=== PATIENT | female | born 1955 | race Caucasian/White ===

== ENCOUNTER → 2020-04-23 09:25 | Outpatient (BNVA) | payer MEDICARE, SELFPAY | PROVIDERS: Family Provider Family Medicine; PCP Family Medicine; Visit Provider Family Medicine | DX: M35.02 Sjogren syndrome with lung involvement (principal); I10 Essential (primary) hypertension; R05 Cough; Z13.6 Encounter for screening for cardiovascular disorders; R41.3 Other amnesia; Z13.220 Encounter for screening for lipoid disorders; L92.8 Other granulomatous disorders of the skin and subcutaneous tissue | CPT/HCPCS: 71046; 80053; 80061; 82607; 82652; 84443; 85025 ==

== ENCOUNTER → 2020-06-26 13:52 | Outpatient (BNVA) | payer MEDICARE, SELFPAY | PROVIDERS: Family Provider Family Medicine; PCP Family Medicine; Referring Provider Family Medicine; Visit Provider Specialist | DX: G51.32 Clonic hemifacial spasm, left (principal); G24.3 Spasmodic torticollis; G31.84 Mild cognitive impairment of uncertain or unknown etiology; M35.02 Sjogren syndrome with lung involvement | CPT/HCPCS: 99204 ==

== ENCOUNTER → 2020-07-11 09:51 | Outpatient (BNVA) | payer MEDICARE, SELFPAY | PROVIDERS: Family Provider Family Medicine; PCP Family Medicine; Visit Provider Internal Medicine | DX: Z11.59 Encounter for screening for other viral diseases (principal) | CPT/HCPCS: 87635 ==

== ENCOUNTER 2020-07-15 09:42 | Outpatient (CLI) | payer MEDICARE, SELFPAY ==
--- NOTE | 2020-07-15 11:00 | PFTS_ITS ---
Date of Study:07/15/20 Date of Dictation: MECHANICS: Forced vital capacity (FVC) is normal. Forced expiratory volume in one second (FEV1) is normal. FEV1/FVC is normal. FLOW VOLUME LOOP: Normal. LUNG VOLUMES: Total lung capacity (TLC) is normal. Residual volume (RV) is normal. DIFFUSING CAPACITY FOR CARBON MONOXIDE: Normal. INTERPRETATION: The pulmonary function tests are normal. Lung volumes are normal. Gas exchange (DLCO) is normal. MTDD
== END 2020-07-15 09:43 | disposition home or self-care (01) ==
LOC: RT 09:43
PROVIDERS: PCP Family Medicine; Visit Provider Internal Medicine Critical Care Medicine
DX: R05 Cough (principal)
CPT/HCPCS: 94010; 94726; 94729

== ENCOUNTER 2020-07-21 12:33 | Outpatient (CLI) | payer MEDICARE, SELFPAY ==
--- NOTE | 2020-07-21 13:00 | MR_ITS ---
WS: [id number] MRI HEAD WITHOUT CONTRAST TECHNIQUE: Sagittal T1, T2 axial, T2 axial FLAIR, axial and coronal T1 images, axial susceptibility w eighted imaging, axial diffusion weighted images, and coronal T2 images were obtained. CLINICAL INFORMATION: G31.84 Mild cognitive impairment, so stated COMPARISON: MRI December 04, 2012 FINDINGS: No evidence of restricted diffusion to suggest acute ischemia. Ventricular system and basal cisterns are patent. Mild supratentorial white matter changes. The number and distribution of lesions is uncha nged from previous. Largest lesion in the right periatrial white matter measuring 6.7 mm unchanged. M ild parenchymal volume loss. Normal posterior fossa. Normal vascular flow voids at the skull base. No extra-axial fluid collection s. No evidence of mass or mass effect. Small right greater than left mastoid effusions. Paranasal sin uses are well aerated. No hemosiderin on susceptibly weighted images. Normal optic chiasm and pituitary infundibulum. Temporal lobes hippocampal formations are normal in a ppearance. Normal medial temporal lobes. MR/MR head wo con* [id number] IMPRESSION: 1. No evidence of restricted diffusion to suggest acute ischemia. 2. Mild supratentorial white matter changes likely due to small vessel disease in a patient this age. White matter changes are stable since 2012 3. Mild parenchymal volume loss. 4. Temporal lobes and hippocampal formations are normal in appearance. Normal mesial temporal lobes. 5. Small effusion right mastoid tip. 6. No hemosiderin on susceptibly weighted images.
== END 2020-07-21 12:34 | disposition home or self-care (01) ==
LOC: RADSHAW 12:38
PROVIDERS: PCP Family Medicine; Visit Provider Specialist
DX: G31.84 Mild cognitive impairment of uncertain or unknown etiology (principal)
CPT/HCPCS: 70551

== ENCOUNTER → 2020-07-24 10:49 | Outpatient (BNVA) | payer MEDICARE, SELFPAY | PROVIDERS: PCP Family Medicine; Visit Provider Specialist | DX: G24.3 Spasmodic torticollis (principal); G31.84 Mild cognitive impairment of uncertain or unknown etiology; G51.32 Clonic hemifacial spasm, left; M35.02 Sjogren syndrome with lung involvement | CPT/HCPCS: 64612; 99213; J0585 ==

== ENCOUNTER → 2020-08-04 13:41 | Outpatient (BNVA) | payer MEDICARE, SELFPAY | PROVIDERS: PCP Family Medicine; Visit Provider Internal Medicine Rheumatology | DX: M35.02 Sjogren syndrome with lung involvement (principal); G24.3 Spasmodic torticollis; R05 Cough; G31.84 Mild cognitive impairment of uncertain or unknown etiology; R76.8 Other specified abnormal immunological findings in serum; D72.819 Decreased white blood cell count, unspecified | CPT/HCPCS: 99204 ==

== ENCOUNTER → 2020-08-05 09:33 | Outpatient (BNVA) | payer MEDICARE, SELFPAY | PROVIDERS: PCP Family Medicine; Visit Provider Internal Medicine Rheumatology | DX: Z79.899 Other long term (current) drug therapy (principal) | CPT/HCPCS: 80053; 80076; 81003; 82565; 82570; 84156; 85025; 85651; 86140; 87077; 87086; 87186 ==

== ENCOUNTER → 2020-09-17 08:18 | Outpatient (BNVA) | payer MEDICARE, SELFPAY | PROVIDERS: PCP Family Medicine; Visit Provider Specialist | DX: G31.84 Mild cognitive impairment of uncertain or unknown etiology (principal); G51.32 Clonic hemifacial spasm, left; G24.3 Spasmodic torticollis | CPT/HCPCS: 96116; 99214 ==

== ENCOUNTER → 2020-10-23 07:53 | Outpatient (BNVA) | payer MEDICARE, SELFPAY | PROVIDERS: PCP Family Medicine; Visit Provider Specialist | DX: G24.3 Spasmodic torticollis (principal); G51.32 Clonic hemifacial spasm, left; G31.84 Mild cognitive impairment of uncertain or unknown etiology | CPT/HCPCS: 64616; 82607; 83921; 99213; J0585 ==

== ENCOUNTER 2020-10-23 08:58 | Outpatient (CLI) | payer MEDICARE, SELFPAY ==
[2020-10-23 10:31] LABS: Vitamin B12 646 pg/mL (232-1245)
[2020-10-28 12:43] LABS: Methylmalonic Acid 169 nmol/L (87-318)
== END 2020-10-23 08:59 | disposition home or self-care (01) ==
PROVIDERS: PCP Family Medicine; Visit Provider Specialist
DX: G31.84 Mild cognitive impairment of uncertain or unknown etiology (principal)
CPT/HCPCS: 82607; 83921

== ENCOUNTER → 2021-01-15 07:52 | Outpatient (BNVA) | payer MEDICARE, SELFPAY | PROVIDERS: PCP Family Medicine; Visit Provider Specialist | DX: G24.3 Spasmodic torticollis (principal); G51.32 Clonic hemifacial spasm, left; G31.84 Mild cognitive impairment of uncertain or unknown etiology | CPT/HCPCS: 64616; 99212; J0585 ==

== ENCOUNTER → 2021-02-09 09:58 | Outpatient (BNVA) | payer MEDICARE, SELFPAY | PROVIDERS: PCP Family Medicine; Visit Provider Internal Medicine Rheumatology | DX: M35.02 Sjogren syndrome with lung involvement (principal); M05.79 Rheumatoid arthritis with rheumatoid factor of multiple sites without organ or systems involvement; R76.8 Other specified abnormal immunological findings in serum; Z79.899 Other long term (current) drug therapy | CPT/HCPCS: 36415; 80076; 82565; 85025; 86140; 99214 ==

== ENCOUNTER 2021-02-09 11:41 | Outpatient (CLI) | payer MEDICARE, SELFPAY ==
[2021-02-09 12:11] LABS: Basophils % 0.5 %; Eosinophils # 0.1 10^3/uL (0.0-0.8); Hematocrit 43.5 % (37.0-47.0); Hemoglobin 14.1 g/dL (11.5-15.3); Lymphocytes # 1.5 10^3/uL (0.8-4.8); Lymphocytes % 36.8 %; Mean Corpuscular HGB Conc 32.4 g/dL (30.0-36.0); Mean Corpuscular Hemoglobin 27.9 pg (28.0-34.0); Mean Platelet Volume 9.8 fL (7.4-10.4); Monocytes # 0.5 10^3/uL (0.2-0.9); Monocytes % 11.8 %; Neutrophils # 1.93 10^3/uL (1.8-7.7); Neutrophils % 48.6 %; Nucleated Red Blood Cells % 0 %; Platelet Count 203 10^3/cmm (130-400); Red Blood Count 5.06 10^6/uL (4.1-5.3); Red Cell Distribution Width 13.8 % (12.1-15.1)
[2021-02-09 12:22] LABS: Alanine Aminotransferase 51 U/L (0-33); Albumin Level 4.3 g/dL (3.5-5.2); Alkaline Phosphatase 85 IU/L (35-105); Aspartate Amino Transferase 58 U/L (0-32); C Reactive Protein 22.6 mg/L (0.0-4.9); Globulin 3.8 g/dL (1.3-4.6); Glomerular Filtration Rate 71.5 mL/min (90-130); Total Bilirubin 0.5 mg/dL (0.15-1.2); Total Protein 8.1 g/dL (6.6-8.7)
== END 2021-02-09 11:42 | disposition home or self-care (01) ==
LOC: LAB 11:46
PROVIDERS: PCP Family Medicine; Visit Provider Internal Medicine Rheumatology
DX: M35.02 Sjogren syndrome with lung involvement (principal); R76.8 Other specified abnormal immunological findings in serum; Z79.899 Other long term (current) drug therapy
CPT/HCPCS: 36415; 80076; 82565; 85025; 86140

== ENCOUNTER → 2021-03-18 10:51 | Outpatient (BNVA) | payer MEDICARE, SELFPAY | PROVIDERS: PCP Family Medicine; Visit Provider Internal Medicine Rheumatology | DX: M35.02 Sjogren syndrome with lung involvement (principal); R76.8 Other specified abnormal immunological findings in serum; Z79.899 Other long term (current) drug therapy | CPT/HCPCS: 80076; 82565; 85025; 86140 ==

== ENCOUNTER → 2021-04-09 09:05 | Outpatient (BNVA) | payer MEDICARE, SELFPAY | PROVIDERS: PCP Family Medicine; Visit Provider Specialist | DX: G24.3 Spasmodic torticollis (principal); G51.32 Clonic hemifacial spasm, left; G31.84 Mild cognitive impairment of uncertain or unknown etiology | CPT/HCPCS: 64616; 99213; J0585 ==

== ENCOUNTER → 2021-06-04 09:41 | Outpatient (BNVA) | payer MEDICARE, SELFPAY | PROVIDERS: PCP Family Medicine; Visit Provider Internal Medicine Rheumatology | DX: M35.02 Sjogren syndrome with lung involvement (principal); M05.79 Rheumatoid arthritis with rheumatoid factor of multiple sites without organ or systems involvement; Z79.899 Other long term (current) drug therapy; Z71.89 Other specified counseling | CPT/HCPCS: 36415; 80076; 82565; 85025; 86140; 99214 ==

== ENCOUNTER → 2021-07-02 10:07 | Outpatient (BNVA) | payer MEDICARE, SELFPAY | PROVIDERS: PCP Family Medicine; Visit Provider Specialist | DX: G24.3 Spasmodic torticollis (principal); G51.32 Clonic hemifacial spasm, left; G31.84 Mild cognitive impairment of uncertain or unknown etiology | CPT/HCPCS: 64616; 99212; 99213; J0585 ==

== ENCOUNTER → 2021-08-03 10:40 | Outpatient (BNVA) | payer MEDICARE, SELFPAY | PROVIDERS: PCP Family Medicine; Visit Provider Family Medicine | DX: M05.79 Rheumatoid arthritis with rheumatoid factor of multiple sites without organ or systems involvement (principal); M19.90 Unspecified osteoarthritis, unspecified site; Z79.899 Other long term (current) drug therapy; I10 Essential (primary) hypertension; Z13.220 Encounter for screening for lipoid disorders; Z13.6 Encounter for screening for cardiovascular disorders; R25.2 Cramp and spasm | CPT/HCPCS: 80048; 80061; 80076; 82565; 83735; 85025; 86140 ==

== ENCOUNTER → 2021-10-15 12:31 | Outpatient (BNVA) | payer MEDICARE, SELFPAY | PROVIDERS: PCP Family Medicine; Visit Provider Specialist | DX: G24.3 Spasmodic torticollis (principal); G31.84 Mild cognitive impairment of uncertain or unknown etiology | CPT/HCPCS: 64616; 99213; J0585 ==

== ENCOUNTER → 2021-11-03 08:35 | Outpatient (BNVA) | payer MEDICARE, SELFPAY | PROVIDERS: PCP Family Medicine; Visit Provider Internal Medicine Rheumatology | DX: M35.02 Sjogren syndrome with lung involvement (principal); M05.79 Rheumatoid arthritis with rheumatoid factor of multiple sites without organ or systems involvement; Z79.899 Other long term (current) drug therapy; D72.819 Decreased white blood cell count, unspecified; Z71.89 Other specified counseling | CPT/HCPCS: 99214 ==

== ENCOUNTER → 2022-01-07 12:49 | Outpatient (BNVA) | payer MEDICARE, SELFPAY | PROVIDERS: PCP Family Medicine; Visit Provider Specialist | DX: G24.3 Spasmodic torticollis (principal); G51.32 Clonic hemifacial spasm, left | CPT/HCPCS: 64616; J0585 ==

== ENCOUNTER → 2022-04-15 07:40 | Outpatient (BNVA) | payer MEDICARE, SELFPAY | PROVIDERS: PCP Family Medicine; Visit Provider Specialist | DX: G24.3 Spasmodic torticollis (principal); G51.32 Clonic hemifacial spasm, left | CPT/HCPCS: 64616; J0585 ==

== ENCOUNTER → 2022-07-08 07:57 | Outpatient (BNVA) | payer MEDICARE, SELFPAY | PROVIDERS: PCP Family Medicine; Visit Provider Specialist | DX: G24.3 Spasmodic torticollis (principal); G51.32 Clonic hemifacial spasm, left | CPT/HCPCS: 64616; J0585 ==

== ENCOUNTER → 2022-07-26 08:39 | Outpatient (BNVA) | payer MEDICARE, SELFPAY | PROVIDERS: PCP Family Medicine; Visit Provider Family Medicine | DX: B02.29 Other postherpetic nervous system involvement (principal); G62.9 Polyneuropathy, unspecified; Z51.81 Encounter for therapeutic drug level monitoring; Z13.220 Encounter for screening for lipoid disorders; Z13.6 Encounter for screening for cardiovascular disorders; M05.79 Rheumatoid arthritis with rheumatoid factor of multiple sites without organ or systems involvement; I10 Essential (primary) hypertension; G60.9 Hereditary and idiopathic neuropathy, unspecified; G47.01 Insomnia due to medical condition; G24.3 Spasmodic torticollis | CPT/HCPCS: 80053; 80061; 85025 ==

== ENCOUNTER → 2022-09-30 11:30 | Outpatient (BNVA) | payer MEDICARE, SELFPAY | PROVIDERS: PCP Family Medicine; Visit Provider Specialist | DX: G24.3 Spasmodic torticollis (principal); G51.32 Clonic hemifacial spasm, left; M35.02 Sjogren syndrome with lung involvement | CPT/HCPCS: 64616; J0585 ==

== ENCOUNTER → 2023-01-10 09:39 | Outpatient (BNVA) | payer MEDICARE, SELFPAY | PROVIDERS: PCP Family Medicine; Visit Provider Nurse Practitioner Family | DX: M25.552 Pain in left hip (principal) | CPT/HCPCS: 73502 ==

== ENCOUNTER → 2023-01-20 07:53 | Outpatient (BNVA) | payer MEDICARE, SELFPAY | PROVIDERS: PCP Family Medicine; Visit Provider Specialist | DX: G24.3 Spasmodic torticollis (principal); G31.84 Mild cognitive impairment of uncertain or unknown etiology; G51.32 Clonic hemifacial spasm, left | CPT/HCPCS: 64616; J0585 ==

== ENCOUNTER → 2023-02-23 15:01 | Outpatient (BNVA) | payer MEDICARE, SELFPAY | PROVIDERS: PCP Family Medicine; Visit Provider Family Medicine | DX: G47.00 Insomnia, unspecified (principal); B02.29 Other postherpetic nervous system involvement; G62.9 Polyneuropathy, unspecified | CPT/HCPCS: 71046 ==

== ENCOUNTER 2023-03-15 14:12 | Outpatient (CLI) | payer MEDICARE, SELFPAY ==
--- NOTE | 2023-03-15 14:30 | XR_ITS ---
WS: [id number] DEXA (DUAL ENERGY X-RAY ABSORPTIOMETRY) Bone mineral density was performed using a Yogome machine. HISTORY: Z78.0 - Asymptomatic menopausal state COMPARISON: None available. Lumbar spine BMD (L1-L4): 1.144 g/cm2 T score: -0.3 Z score: 1.5 Total hip BMD: Right: 0.794 g/cm2. T score: -1.7 Z score: -0.2 10 year probability of a major osteoporotic fracture is 41.7%. XR/XR DEXA axial skeleton* 00002 IMPRESSION: OSTEOPENIA based upon the WHO classification for females.
== END 2023-03-15 14:13 | disposition home or self-care (01) ==
PROVIDERS: PCP Family Medicine; Visit Provider Family Medicine
DX: Z13.820 Encounter for screening for osteoporosis (principal); Z78.0 Asymptomatic menopausal state; M85.80 Other specified disorders of bone density and structure, unspecified site
CPT/HCPCS: 77080

== ENCOUNTER → 2023-03-23 10:24 | Outpatient (BNVA) | payer MEDICARE, SELFPAY | PROVIDERS: PCP Family Medicine; Visit Provider Family Medicine | DX: M54.9 Dorsalgia, unspecified (principal); G89.29 Other chronic pain; I10 Essential (primary) hypertension; E55.9 Vitamin D deficiency, unspecified; M85.80 Other specified disorders of bone density and structure, unspecified site | CPT/HCPCS: 72070; 72100; 80053; 82652 ==

== ENCOUNTER → 2023-04-21 09:19 | Outpatient (BNVA) | payer MEDICARE, SELFPAY | PROVIDERS: PCP Family Medicine; Visit Provider Specialist | DX: G24.3 Spasmodic torticollis (principal); G51.32 Clonic hemifacial spasm, left | CPT/HCPCS: 64616; J0585 ==

== ENCOUNTER → 2023-07-28 09:01 | Outpatient (BNVA) | payer MEDICARE, SELFPAY | PROVIDERS: PCP Family Medicine; Visit Provider Specialist | DX: G24.3 Spasmodic torticollis (principal); G51.32 Clonic hemifacial spasm, left; I10 Essential (primary) hypertension | CPT/HCPCS: 64616; J0585 ==

== ENCOUNTER → 2023-11-03 11:55 | Outpatient (BNVA) | payer MEDICARE, SELFPAY | PROVIDERS: PCP Family Medicine; Referring Provider Family Medicine; Visit Provider Internal Medicine Cardiovascular Disease | DX: R07.9 Chest pain, unspecified (principal); R06.02 Shortness of breath; G51.32 Clonic hemifacial spasm, left; G31.84 Mild cognitive impairment of uncertain or unknown etiology; G24.3 Spasmodic torticollis | CPT/HCPCS: 36415; 64616; 80048; 83880; 93005; 99204; J0585 ==

== ENCOUNTER → 2023-11-09 14:48 | Outpatient (BNVA) | payer MEDICARE, SELFPAY | PROVIDERS: PCP Family Medicine; Visit Provider Nurse Practitioner Women's Health | DX: N76.0 Acute vaginitis (principal); R31.9 Hematuria, unspecified | CPT/HCPCS: 84315; 87086 ==

== ENCOUNTER 2023-11-11 09:07 | Outpatient (CLI) | payer MEDICARE, SELFPAY ==
--- NOTE | 2023-11-11 | USCV_ITS ---
Juanita Alvarado Age: 68 Gender: F : 1955 Exam Date: 11/11/2023 10:05 Ordering Phys: New Sweet MD ([email or web address]) Technologist: [place] [facility] [place] sob BP: 137 / 80 HR: 74 Rhythm: Sinus Technical Quality: Adequate MEASUREMENTS (Male / Female) Normal Values 2D ECHO LVOT Diameter 2.0 cm LV Ejection Fraction MOD 2C 63.2 % LV Ejection Fraction 2C AL 63.7 % LA Diameter 4.0 cm Aorta at Sinotubular Diameter 1.9 cm IVC Diameter 1.5 cm M-MODE Aortic Annulus Diameter 2.7 cm LA Ao Ratio MM 1.7 MV E Point Septal Separation 1.1 cm DOPPLER AV Peak Velocity 107.0 cm/s LVOT Peak Velocity 81.0 cm/s AV Area Cont Eq vti 2.3 cm squared AV Area Cont Eq pk 2.5 cm squared MV E' Velocity 11.0 cm/s TR Peak Velocity 177.7 cm/s TR Peak Gradient 12.6 mmHg TV Peak E Velocity 73.0 cm/s Right Atrial Pressure 3.0 mmHg Pulmonary Artery Systolic Pressu 15.6 mmHg PV Peak Velocity 97.0 cm/s FINDINGS Left Ventricle Normal left ventricular size and systolic function, EF 57 %. No regional wall motion abnormalities. Grade III/IV diastolic dysfunction (restrictive filling pattern), severely elevated filling pressures. Right Ventricle The right ventricle is normal in size and function. Right Atrium The right atrium is normal in size. Left Atrium Mildly increased left atrial size. Mitral Valve Moderate mitral annular calcification. Moderately severe mitral valve regurgitation. Aortic Valve Minimally thickened aortic valve Tricuspid Valve Trace tricuspid valve regurgitation. Pulmonic Valve Pulmonic valve not well visualized. Pericardium Normal pericardium without effusion. Aorta Normal ascending aorta dimension. IVC Normal IVC dimension with >50% respiratory change of the inferior vena cava. CONCLUSIONS Normal left ventricular size and systolic function, EF 57 %. No regional wall motion abnormalities. Grade III/IV diastolic dysfunction (restrictive filling pattern), severely elevated filling pressures. Mildly increased left atrial size. Moderate mitral annular calcification. Moderately severe mitral valve regurgitation. Trace tricuspid valve regurgitation. Minimally thickened aortic valve. There is no pericardial effusion. There are no intracardiac masses. No similar previous studies are available for comparison Dr New Sweet MD FAC (Electronically Signed) Final Date: 11 November 2023 13:03 S
[2023-11-11 09:15] VITALS: BMI 25.4
--- NOTE | 2023-11-11 09:23 | ECG_ITS ---
[facility] Test Date: 2023-11-11 Pat Name: Juanita Alvarado Department: Room: Gender: Female Consumer Affairs Specialist: : 1955 Requested By: New Sweet Order Number: [id number] Shyam MD: New Sweet M.D. Interpretive Statements NAME OF STUDY: LEXISCAN SESTAMIBI STRESS TEST INDICATION: Chest Pressure PROCEDURE: At the baseline, the EKG revealed normal sinus rhythm with a normal ST Ts.. The baseline heart was 80 bpm with a blood pressue of 166/104 mm of Hg Lexiscan was infused over a period of 20 seconds. A total of 0.4 milligrams of Lexiscan was infused. The stress phase was continued for a total of 5 minutes. Heart rate at the end of the stress phase was 98 bpm with a blood pressure 165/90 mm of Hg. The EKG at the peak infusion revealed no significant changes. Sestamibi was injected 20 seconds after the Lexiscan infusion. Heart rate at the end of the recovery phase was 96 bpm with a blood pressure of 170/99 mm of Hg. CONCLUSION: 1. No significant EKG changes with the LexiScan infusion 2. No LexiScan induced chest pain or cardiac arrhythmia 3. Normal blood pressure and heart rate response 4. Sestamibi/sestamibi perfusion scan pending; see separate report. Electronically Signed On 11-11-2023 18:52:17 CUTTER GRIND [employer]OL TECHNICIAN by New Sweet M.D. [email or web address]
--- NOTE | 2023-11-11 09:24 | NMCV_ITS ---
NM keinsha perf SPECT r/s* [id number] Juanita Alvarado Age: 68 Gender: F : 1955 Exam Date: 11/11/2023 09:24 Ordering Phys: New Sweet MD ([email or web address]) Technologist: LORETA Call Exam Location: [facility] Indications: CORONARY ANGIOPLASTY STATUS STRESS TEST [facility] IMAGE PROTOCOL Rest/Stress 1 Lexiscan Day Radiopharmaceutical Dose (mCi) Administration Site Administered by Rest: Tc-99m 10.4 IV LORETA [place] Sestamibi Stress:Tc-99m 32.6 IV LORETA [place] Sestamibi Rest: 11-Nov-2023 60 Discovery 630 Stress: 11-Nov-2023 30 Discovery 630 0.4mg Lexiscan. Supine position only as patient was unable to lay prone. SPECT RESULTS Technical Quality: Excellent Raw Data Analysis: Normal Image Corrections: No attenuation or motion correction applied Summed Stress Score: 0 Summed Rest Score: 4 Summed Difference Score: 0 PERFUSION FINDINGS Small area of slightly decreased tracer uptake was noted in the mid inferolateral and apical lateral regions. No significant reversibility was noted in this region FUNCTIONAL RESULTS (calculated via Gated SPECT) Stress Image LV EF (%): 98 Stress EDV (mL):49 TID: 0.83 Stress ESV (mL):1 FUNCTIONAL FINDINGS: Segmental wall motion analysis revealing no gross wall motion abnormalities IMPRESSIONS 1. Small area of slightly decreased persistent tracer uptake in the inferolateral and apical lateral region, suggestive of myocardial scarring versus attenuation artifact. 2. Normal LV ejection fraction of 98%. 3. LV wall motion analysis revealing no gross wall motion abnormalities. 4. Normal LV volume Low probability for coronary ischemia, based on the above findings No similar previous studies are available for comparison Dr New Sweet MD [facility] (Electronically Signed) Final Date: 11 November 2023 12:47 S
[2023-11-11] MEDS: regadenoson 0.4 Mg/5 ml Syringe 0.400000000000000022 MG IVP (11:20)
[2023-11-11 11:43] VITALS: BP 158/96; PULSE 62
== END 2023-11-11 09:08 | disposition home or self-care (01) ==
PROVIDERS: PCP Family Medicine; Visit Provider Internal Medicine Cardiovascular Disease
DX: I25.10 Atherosclerotic heart disease of native coronary artery without angina pectoris (principal); Z98.61 Coronary angioplasty status; R06.02 Shortness of breath; I08.3 Combined rheumatic disorders of mitral, aortic and tricuspid valves
CPT/HCPCS: 36415; 64616; 78452; 80048; 83880; 93017; 93306; 96374; A9500; J0585; J2785